=== PATIENT | male | born 1950 | race Caucasian/White ===

== ENCOUNTER → 2019-03-27 | Outpatient (CLI) | payer MEDICARE ==
--- NOTE | 2019-03-27 14:07 | RAD ---
Ultrasound neck soft tissue. INDICATION: Left neck lump. TECHNIQUE: Grayscale and color Doppler imaging of the left neck in the area of clinical concern was performed. FINDINGS: The area of palpable concern correlates to the patient's left carotid bulb. No flow limiting stenosis is apparent on color Doppler imaging. Spectral Doppler imaging for arterial velocities was performed. A benign-appearing lymph node in the area measuring 0.7 x 0.5 x 0.4 cm is incidentally noted. No fluid collection or pseudoaneurysm. IMPRESSION: No abnormal sonographic correlate to the area of palpable concern is identified by ultrasound. The area of palpable concern likely reflects the patient's left carotid bulb status post endarterectomy. A formal interrogation of the patient's carotid arteries can be performed with ultrasound if clinically warranted. Otherwise negative study. Electronically signed by: Flaquito Hernandez MD (03/27/2019 2:05 PM) [facility]
--- NOTE | 2019-03-27 14:41 | RAD ---
Exam : Carotid Duplex with Grayscale Ultrasound and Spectral and Color Doppler Analysis 03/27/2019 2:32 PM Clinical Indications: History of left carotid stent. Bruit. Comparison study: None available. PQRS Compliance Statement - Stenosis calculations for CT, MR and conventional angiography are based upon measurement of the distal ICA diameter in accordance with the NASCET methodology. Stenosis calculations for carotid ultrasound studies are derived from validated velocity criteria which are known to correlate with the NASCET methodology. Findings: The common, internal and external carotid arteries were examined by grayscale, color and spectral Doppler ultrasound. No high-grade visual stenosis is identified. Some diffuse atherosclerotic plaquing is seen. The following are the velocities and ratios in the carotid arteries on both sides: RIGHT ICA PV: 83cm/sec RIGHT CCA PV: 85cm/sec RIGHT ICA ED: 23cm/sec RIGHT IC/CCPV: <2 RIGHT VERTEBRAL: antegrade flow LEFT ICA PV: 65cm/sec LEFT CCA PV: 89cm/sec LEFT ICA ED: 23cm/sec LEFT IC/CCPV: <2 LEFT VERTEBRAL: antegrade flow <50% ICA Stenosis: PSV < 125cm/s (EDV < 40cm/s; SVR < 2.0) 50-69% ICA Stenosis: PSV < 125-229cm/s (EDV 40-99cm/s; SVR 2.0-3.9) >70% ICA Stenosis: PSV > 230cm/s (EDV >100cm/s; SVR >4.0) Impression: No evidence of hemodynamically significant stenosis. Mild diffuse atherosclerotic disease. Electronically signed by: Deon Leggett MD (03/27/2019 2:38 PM) [id number]
== END | disposition home or self-care (01) ==
LOC: US 12:26
PROVIDERS: ATTEND Family Medicine
DX: I65.23 Occlusion and stenosis of bilateral carotid arteries (principal); R22.1 Localized swelling, mass and lump, neck
CPT/HCPCS: 76536; 93880